=== PATIENT | male | born 1985 | race Caucasian/White ===

== ENCOUNTER 2023-07-25 09:57 | Outpatient (CLI) | payer OTHER, SELFPAY ==
--- NOTE | ~2023-07-25 | US_ITS ---
US scrotum doppler INDICATION: Asymmetry of the testicles TECHNIQUE: Testicular sonogram utilizing grayscale and color Doppler FINDINGS: The testes are normal in size and appearance. No focal lesions are seen. There is a small 3 mm left testicular cyst. The right testes measures centimeters, and the left testis measures cm. Th ere is normal vascular flow to both testes. The right and left epididymides appear normal. There is no varicocele or hydrocele. IMPRESSION: 1. Unremarkable testicular ultrasound Reviewed, dictated and finalized at location L. [employer]LY[employer]
== END 2023-07-25 09:58 ==
LOC: GOSHIMG 09:58
PROVIDERS: PCP Nurse Practitioner; Visit Provider Nurse Practitioner
DX: N50.89 Other specified disorders of the male genital organs (principal)
CPT/HCPCS: 76870; 93976